=== PATIENT | female | born 1970 | race Caucasian/White ===

== ENCOUNTER 2022-09-06 07:32 | Day surgery (SDC) | payer OTHER ==
[~2022-09-06] VITALS: Ht 162.6 cm; Wt 106.6 kg
[2022-09-06] MEDS ORDERED: fentaNYL citrate 0.05 MG/ML VIAL ONE (11:33)
[2022-09-06] MEDS ORDERED: LIDOCAINE 2% 100 MG/5 ML UJET TP ONE (11:33)
[2022-09-06] MEDS ORDERED: fentaNYL citrate 0.05 MG/ML VIAL IVP ONE (12:55)
== END 2022-09-06 13:06 | disposition home or self-care (01) ==
LOC: MDS 07:32 → MMU 07:33 → MDS 13:06
PROVIDERS: ATTEND Internal Medicine Gastroenterology
DX: Z12.11 Encounter for screening for malignant neoplasm of colon (principal); D12.3 Benign neoplasm of transverse colon; D12.5 Benign neoplasm of sigmoid colon; K57.30 Diverticulosis of large intestine without perforation or abscess without bleeding; E11.9 Type 2 diabetes mellitus without complications; E78.5 Hyperlipidemia, unspecified; Z80.1 Family history of malignant neoplasm of trachea, bronchus and lung; Z80.3 Family history of malignant neoplasm of breast; Z87.891 Personal history of nicotine dependence; Z79.4 Long term (current) use of insulin; Z79.899 Other long term (current) drug therapy; Z20.822 Contact with and (suspected) exposure to COVID-19
CPT/HCPCS: 45385; 87426; J3010